=== PATIENT | female | born 1980 | race Two or more races ===

== ENCOUNTER 2025-01-26 10:20 | Day surgery (SDC) | payer MEDICAID, SELFPAY ==
--- NOTE | 2025-01-23 07:52 | EKG_ITS ---
[facility] Test Date: 2025-01-23 Pat Name: CINTHIA MACKEY Department: Room: - Gender: Female Frit Burner: NEIL : 1980 Requested By: Ananth Hsu Order Number: [id number] Reading MD: Ananth Hsu Measurements Intervals [place] Rate: 88 P: 48 GA: 127 QRS: 68 QRSD: 102 T: 57 QT: 364 QTc: 441 Interpretive Statements SINUS RHYTHM No previous ECG available for comparison /store/S0/[id number]/ecg/[id number].pdf
[2025-01-23 11:30] LABS: HCG Qualitative,Urine Negative
[2025-01-23 11:47] LABS: Alanine Aminotransferase 44 U/L (10-49); Albumin, Serum 4.9 gm/dL (3.5-5.0); Albumin/Globulin Ratio 1.6 (1.2-2.2); Alkaline Phosphatase 93 U/L (46-116); Anion Gap 10 (7-16); Aspartate Amino Transferase 21 U/L (0-34); BUN/Creatinine Ratio 8 Ratio (12-20); Bilirubin,Total 1.1 mg/dL (0.3-1.2); Blood Urea Nitrogen < 5 mg/dL (9-23); Calcium 9.7 mg/dL (8.3-10.6); Calcium (Corrected) 9.7 mg/dL (8.5-10.1); Carbon Dioxide 28.0 mMol/L (20.0-31.0); Chloride 103 mMol/L (98-107); Creatinine (Component) 0.6 mg/dL (0.6-1.3); Globulin 3.0 gm/dL (2.3-3.5); Glucose 94 mg/dL (74-106); Osmolality,Calculated 278 (275-295); Potassium 4.0 mMol/L (3.4-5.1); Sodium 141 mMol/L (136-145); Total Protein 7.9 gm/dL (5.7-8.2); eGFR > 60 See Note
[2025-01-26] VITALS (7 sets, daily range): BP systolic 101–123; BP diastolic 65–88; PULSE 86–91; RESP 13–20; TEMP 36.4–36.9; O2SAT 95–100; BMI 39.8
[2025-01-26] MEDS: RINGERS LACTATED 1000 ML 1,000 ML 60 ML IV (14:27)
--- NOTE | 2025-01-26 15:20 | SUR.PHASEII ---
1520: Pt. AAOx4, vitals stable, breathing unlabored, no complaint of pain or nausea, no dressing in place, no active bleed noted, report received from MD Early and Delisa RICKETTS.
--- NOTE | 2025-01-26 16:00 | SUR.PHASEII ---
1600: Pt. AAOx4, vitals stable, breathing unlabored, no complaint of pain or nausea, no dressing in place, no active bleed noted, pt. tolerated sips of juice well, pt. able to pass flatus, gave discharge instructions to the pt. and her ride using in-house metal washing machine operator, both pt. and her ride verbalized understanding and had no further questions. Pt. ambulated to wheelchair with steady gait and no assist. Pt. left with all personal belongings.
== END 2025-01-26 16:00 | disposition home or self-care (01) ==
PROVIDERS: Anesthesiology; Referring Provider Specialist; Visit Provider Specialist
PROC: 0DJD8ZZ Inspection of Lower Intestinal Tract, Via Natural or Artificial Opening Endoscopic (ICD-10-PCS; CPT 45378; principal; 2025-01-26 12:00)
DX: Z12.11 Encounter for screening for malignant neoplasm of colon (principal); Z01.818 Encounter for other preprocedural examination; D12.8 Benign neoplasm of rectum; K64.9 Unspecified hemorrhoids; Z01.810 Encounter for preprocedural cardiovascular examination
CPT/HCPCS: 45380; 36415; 80053; 81025; 93005; A4649; J7120

== ENCOUNTER 2025-02-16 05:35 | Day surgery (SDC) | payer MEDICAID, SELFPAY ==
--- NOTE | 2025-02-06 08:49 | EKG_ITS ---
[facility] Test Date: 2025-02-06 Pat Name: CINTHIA MACKEY Department: Room: - Gender: Female Bad Cloth Checker: JOSELYN : 1980 Requested By: Fransisco Taylor Order Number: [id number] Reading MD: Fransisco Taylor Measurements Intervals [place] Rate: 92 P: 70 [place]: 124 QRS: 93 QRSD: 87 T: 76 QT: 347 QTc: 431 Interpretive Statements SINUS RHYTHM BORDERLINE RIGHT AXIS DEVIATION [QRS AXIS > 90] Compared to ECG 01/23/2025 10:52:15 No significant changes /store/S0/[id number]/ecg/[id number].pdf
[2025-02-06 09:05] VITALS: BMI 41.0
[2025-02-06 10:11] LABS: Collection Type, Urine Clean Catch
[2025-02-06 10:21] LABS: Basophils # (Auto) 0.1 Thou/mm3 (0.0-0.2); Basophils % (Auto) 1 % (0-2.5); Eosinophils # (Auto) 0.3 Thou/mm3 (0.0-0.5); Eosinophils % (Auto) 3 % (0-10); Hematocrit 40.9 % (36.0-46.0); Hemoglobin 13.4 g/dL (12.0-16.0); Immature Granulocytes Auto 0.04 Thou/mm3 (0.00-0.00); Lymphocytes # (Auto) 2.6 Thou/mm3 (1.0-4.8); Lymphocytes % (Auto) 30 % (10-50); Mean Corpuscular HGB Conc 32.8 g/dl (31.0-37.0); Mean Corpuscular Hemoglobin 29.6 pg (25.0-35.0); Mean Corpuscular Volume 90 fL (80-100); Monocytes # (Auto) 0.6 Thou/mm3 (0.0-0.8); Monocytes % (Auto) 7 % (0-12); Neutrophils # (Auto) 5.2 Thou/mm3 (1.8-7.7); Neutrophils % (Auto) 59 % (37-80); Nucleated Red Blood Cell # 0.00 Thou/mm3 (0.00-0.00); Nucleated Red Blood Cell % 0 /100 WBC (0); Platelet Count 304 Thou/mm3 (140-440); RDW Standard Deviation 43.9 fL (36.4-46.3); Red Blood Count 4.53 Miln/mm3 (4.00-5.20); White Blood Count 8.8 Thou/mm3 (3.6-11.0)
[2025-02-06 10:27] LABS: Bacteria,Urine Rare; Bilirubin,Urine Negative (Negative); Blood,Urine Negative (Negative); Clarity,Urine Clear (Clear/Hazy); Color,Urine Yellow (Lt Yel-Yel); Glucose, Urine Negative (Negative); Ketones,Urine Negative (Negative); Leukocyte Esterase,Urine Negative (Negative); Nitrite,Urine Negative (Negative); PH,Urine 5.5 (5.0-7.0); Protein,Urine Negative (Neg - Trace); RBC,Urine 4 /hpf (0-3); Specific Gravity,Urine 1.028 (1.001-1.035); Squamous Epithelial Cell,Urine 5 /hpf (0-5); Urobilinogen,Urine Negative mg/dL (0.0-1.0); WBC,Urine 1 /hpf (0-5)
[2025-02-06 10:29] LABS: Partial Thromboplastin Time 30.9 Seconds (22.0-36.0)
[2025-02-06 10:35] LABS: Alanine Aminotransferase 28 U/L (10-49); Albumin, Serum 4.7 gm/dL (3.5-5.0); Albumin/Globulin Ratio 2.2 (1.2-2.2); Alkaline Phosphatase 82 U/L (46-116); Anion Gap 9 (7-16); Aspartate Amino Transferase 21 U/L (0-34); BUN/Creatinine Ratio 12 Ratio (12-20); Bilirubin,Total 0.8 mg/dL (0.3-1.2); Blood Urea Nitrogen 7 mg/dL (9-23); Calcium 9.1 mg/dL (8.3-10.6); Calcium (Corrected) 9.1 mg/dL (8.5-10.1); Carbon Dioxide 26.3 mMol/L (20.0-31.0); Chloride 105 mMol/L (98-107); Creatinine (Component) 0.6 mg/dL (0.6-1.3); Estimated Creatinine Clearance 140.9 mL/min (>60); Globulin 2.1 gm/dL (2.3-3.5); Glucose 90 mg/dL (74-106); Osmolality,Calculated 277 (275-295); Potassium 4.1 mMol/L (3.4-5.1); Sodium 140 mMol/L (136-145); Total Protein 6.8 gm/dL (5.7-8.2); eGFR > 60 See Note
[2025-02-09 06:00] VITALS: BP 135/83; PULSE 84; RESP 17; TEMP 36.8; O2SAT 98; BMI 40.2
--- NOTE | 2025-02-09 06:45 | SUR.PREOP ---
Dr. Taylor canceled surgery because he is sick. Informed patient that surgery is cancelled and made aware to call office and reschedule.
[2025-02-13 09:44] VITALS: BMI 40.8
[2025-02-16] VITALS (17 sets, daily range): BP systolic 93–121; BP diastolic 50–86; PULSE 87–110; RESP 12–20; TEMP 36.3–36.6; O2SAT 92–100; BMI 39.5
--- NOTE | 2025-02-16 08:00 | SUR.PREOP ---
Patient expressed gratitude for prayer before their procedure.
--- NOTE | 2025-02-16 09:50 | SUR.PHASEI ---
pt received from OR in recovery bay 5. pt asleep but responds to voice, breathing unlabored on room air. v/s stable. report received from Yariel Browning and Sacha CORNEJO.
--- NOTE | 2025-02-16 09:55 | ESOP_ITS ---
Date of Procedure 02/16/25 Pre Op Diagnosis Rectal tumor Post Op Diagnosis Same. Procedure Transanal resection of the rectal tumor and intraoperative colonoscopy and polypectomy on 02/16/2025 Findings This patient has about 4 cm tumor and the distal rectum this was a polypoid villous tumor and it required resection and because of the location required colonoscopy examination also. The polyp was removed completely. Procedure Description This patient was examined in the preoperative area and risk benefits and alternatives were discussed with the patient. 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 She will undergo transanal resection of the tumor possible colonoscopy. After that patient was taken to the operating room. Spinal and general anesthesia was administered by the nurse therapeutic mentor. The patient is positioned in the high lithotomy position. The perianal region is prepped and draped in usual manner. Transanal examination is carried out. The tumor could only be partially seen. The tumor was examined and it was difficult to remove it and portion of the tumor was removed and then the colonoscopy was done. The scope was advanced to about 30 cm and then retroflexed and then the tumor was identified. Tumor was within 10 cm of the anal verge. Hot snare was used to resect the tumor and was retrieved out of the rectum. Examination again carried out and the base of the polyp was also resected. There was no bleeding. The scope was straightened out and then retrieved out of the patient. Please see the separate colonoscopy report. Patient taught the procedure very well. Complications none. This patient will require endoscopic examination in another 6 months if the pathology finding is benign. Otherwise she will require further management. Anesthesia GETA and spinal Drains None. Implants None. Pathology / specimen Other (Rectal tumor.) Estimated Blood Loss 0 Condition Stable Disposition PACU Surgeon Fransisco Taylor MD Surgical Staff Operation Date: 02/16/25 07:30 Case Staff FIRE PRODUCTION OPERATOR: Aston Davalos surgical services coordinator [facility] Yariel RICKETTS crusher plant operator
--- NOTE | 2025-02-16 10:05 | SUR.PHASEI ---
pt able to tolerate oral fluids without nausea/vomiting.
--- NOTE | 2025-02-16 11:09 | SUR.PHASEII ---
report from nurse chase. vss. breathing even and unlabored. denies pain and nausea. no bleeding noted.
--- NOTE | 2025-02-16 11:39 | SUR.PHASEII ---
report to chase.
--- NOTE | 2025-02-16 14:15 | SUR.PHASEII ---
pt awake and alert, breathing unlabored on room air. v/s stable. pt able to ambulate to wheelchair with steady gait. pt able to urinate. d/c instructions given with Ignacio in room using pharmaceutical process engineer [id number], all questions answered. pt d/c via wheelchair with all belongings.
== END 2025-02-16 14:15 | disposition home or self-care (01) ==
PROVIDERS: PCP Physician Assistant; Referring Provider Specialist; Visit Provider Specialist
PROC: (CPT 45385; principal; 2025-02-09 07:30)
DX: D12.8 Benign neoplasm of rectum (principal); D49.0 Neoplasm of unspecified behavior of digestive system; Z01.810 Encounter for preprocedural cardiovascular examination
CPT/HCPCS: 45385; 45171; 36415; 80053; 81001; 85025; 85730; 93005; A4649; J0694; J2250; J2274; J2704; J3010; J3490; J7999; A9270; J1596; J2270